=== PATIENT | female | born 1995 | race Caucasian/White ===

== ENCOUNTER 2021-10-17 11:08 | Inpatient (IN) | payer OTHER ==
[2021-10-17] MEDS ORDERED: ONDANSETRON *ODT* 4 MG TABLET SL PRN (11:58)
[2021-10-17] MEDS ORDERED: MAG HYDROX/AL HYDROX/SIMETH 30 ML UNIT-DOSE CUP PO PRN (11:58)
[2021-10-17] MEDS ORDERED: MENTHOL/PHENOL 1 EACH UD MM PRN (11:58)
[2021-10-17] MEDS ORDERED: MAGNESIUM CITRATE 300 ML BOTTLE PO PRN (11:58)
[2021-10-17] MEDS ORDERED: BISMUTH SUBSALICYLATE 262 MG/15 ML BTL PO PRN (11:58)
[2021-10-17] MEDS ORDERED: MAGNESIUM HYDROX 2400MG/30ML ORAL SUSPENSION 30 ML CUP PO PRN (11:58)
[2021-10-17] MEDS ORDERED: ACETAMINOPHEN 325 MG TABLET (FP) PO PRN ×2 (11:58)
[2021-10-17] MEDS ORDERED: NICOTINE 10 MG CARTRIDGE (INHALER) IH PRN (11:58)
[2021-10-17] MEDS: TOLNAFTATE 1% CREAM 15 GM TUBE TP SCH ×2 (14:56→22:38)
[2021-10-17] MEDS: hydrOXYzine PAMOATE 25 MG CAPSULE (FP) PO SCH ×3 (14:57→22:39)
[2021-10-17] MEDS: NICOTINE 14 MG/24 HOURS TOPICAL PATCH TD SCH (14:57)
[2021-10-17 16:16] LABS: HEMOGLOBIN 12.6 GM/dL (10.7-15.3); MCH 27.4 pg (25.7-33.7); MCHC 33.1 g/dl (32.0-36.0); MEAN CELL VOLUME 82.9 fl (80-96); MEAN PLT VOLUME 8.1 fl (7.5-11.1); PLATELET COUNT 178 10^3/uL (134-434); RBC 4.58 M/mm3 (3.60-5.2); RDW 13.9 % (11.6-15.6); WHITE BLOOD COUNT 4.7 K/mm3 (4.0-10.0)
[2021-10-17 16:21] LABS: CALCIUM 9.1 mg/dL (8.5-10.1)
[2021-10-17 16:22] LABS: ALBUMIN 3.7 g/dl (3.4-5.0); BLOOD UREA NITROGEN 10.5 mg/dL (7-18)
[2021-10-17 16:25] LABS: CREATININE 0.7 mg/dL (0.55-1.3)
[2021-10-17 16:27] LABS: BILIRUBIN,TOTAL 0.9 mg/dL (0.2-1); TOT PROT 7.4 g/dl (6.4-8.2)
[2021-10-17] MEDS: IBUPROFEN 400 MG TABLET (FP) PO PRN (22:38)
[2021-10-17] MEDS: THIAMINE HCL 100 MG TABLET (FP) PO SCH (22:39)
[2021-10-17] MEDS: METHOCARBAMOL 500 MG TABLET PO PRN (22:39)
[2021-10-17] MEDS: traZODone HCL 50 MG TABLET (FP) PO SCH (22:39)
[2021-10-17] MEDS: MELATONIN 5 MG TABLETS PO SCH (22:39)
[2021-10-18] MEDS: hydrOXYzine PAMOATE 25 MG CAPSULE (FP) PO SCH ×5 (07:34→23:02)
[2021-10-18] MEDS: PRENATAL VITAMINS W/ FOLIC ACID TABLET (FP) PO SCH (10:24)
[2021-10-18] MEDS: NICOTINE 14 MG/24 HOURS TOPICAL PATCH TD SCH (10:24)
[2021-10-18] MEDS: SERTRALINE HCL 50 MG TABLET (FP) PO SCH (10:25)
[2021-10-18] MEDS: TOLNAFTATE 1% CREAM 15 GM TUBE TP SCH ×2 (10:25→22:58)
[2021-10-18] MEDS ORDERED: cloNIDine HCL 0.1 MG TABLET PO PRN (10:29)
[2021-10-18] MEDS ORDERED: methaDONE HCL 10 MG TABLET (FOR DETOX USE ONLY) PO ONE (10:29)
[2021-10-18] MEDS ORDERED: diazePAM 5 MG TABLET PO PRN (10:30)
[2021-10-18] MEDS ORDERED: FLU VACC QS2021-22(6MOS UP)/PF 60 MCG/0.5 ML SYRINGE IM ONE (12:00)
[2021-10-18] MEDS: MELATONIN 5 MG TABLETS PO SCH (22:57)
[2021-10-18] MEDS: THIAMINE HCL 100 MG TABLET (FP) PO SCH (22:57)
[2021-10-18] MEDS: traZODone HCL 50 MG TABLET (FP) PO SCH (22:57)
[2021-10-18] MEDS: IBUPROFEN 400 MG TABLET (FP) PO PRN (23:00)
[2021-10-18] MEDS: METHOCARBAMOL 500 MG TABLET PO PRN (23:00)
[2021-10-19] MEDS: hydrOXYzine PAMOATE 25 MG CAPSULE (FP) PO SCH ×5 (08:19→22:06)
[2021-10-19] MEDS ORDERED: methaDONE HCL 10 MG TABLET (FOR DETOX USE ONLY) ONE ×2 (09:42→11:33)
[2021-10-19] MEDS: NICOTINE 14 MG/24 HOURS TOPICAL PATCH TD SCH (11:36)
[2021-10-19] MEDS: PRENATAL VITAMINS W/ FOLIC ACID TABLET (FP) PO SCH (11:38)
[2021-10-19] MEDS: TOLNAFTATE 1% CREAM 15 GM TUBE TP SCH ×2 (11:58→22:06)
[2021-10-19] MEDS: SERTRALINE HCL 50 MG TABLET (FP) PO SCH (11:58)
[2021-10-19] MEDS: METHOCARBAMOL 500 MG TABLET PO PRN (18:20)
[2021-10-19] MEDS: THIAMINE HCL 100 MG TABLET (FP) PO SCH (22:06)
[2021-10-19] MEDS: MELATONIN 5 MG TABLETS PO SCH (22:06)
[2021-10-19] MEDS: traZODone HCL 50 MG TABLET (FP) PO SCH (22:06)
[2021-10-20] MEDS: hydrOXYzine PAMOATE 25 MG CAPSULE (FP) PO SCH ×5 (06:50→22:16)
[2021-10-20] MEDS ORDERED: methaDONE HCL 10 MG TABLET (FOR DETOX USE ONLY) PO ONE (10:00)
[2021-10-20] MEDS: SERTRALINE HCL 50 MG TABLET (FP) PO SCH (10:41)
[2021-10-20] MEDS: PRENATAL VITAMINS W/ FOLIC ACID TABLET (FP) PO SCH (10:41)
[2021-10-20] MEDS: NICOTINE 14 MG/24 HOURS TOPICAL PATCH TD SCH (10:42)
[2021-10-20] MEDS: TOLNAFTATE 1% CREAM 15 GM TUBE TP SCH ×2 (10:46→23:03)
[2021-10-20] MEDS: traZODone HCL 50 MG TABLET (FP) PO SCH (22:16)
[2021-10-20] MEDS: THIAMINE HCL 100 MG TABLET (FP) PO SCH (22:16)
[2021-10-20] MEDS: MELATONIN 5 MG TABLETS PO SCH (22:16)
[2021-10-20] MEDS: IBUPROFEN 400 MG TABLET (FP) PO PRN (22:17)
[2021-10-20] MEDS: METHOCARBAMOL 500 MG TABLET PO PRN (22:17)
[2021-10-21] MEDS: hydrOXYzine PAMOATE 25 MG CAPSULE (FP) PO SCH ×5 (07:47→22:10)
[2021-10-21] MEDS ORDERED: methaDONE HCL 10 MG TABLET (FOR DETOX USE ONLY) ONE (09:51)
[2021-10-21] MEDS: METHOCARBAMOL 500 MG TABLET PO PRN ×2 (10:37→22:11)
[2021-10-21] MEDS: NICOTINE 14 MG/24 HOURS TOPICAL PATCH TD SCH (10:38)
[2021-10-21] MEDS: TOLNAFTATE 1% CREAM 15 GM TUBE TP SCH ×2 (10:38→22:17)
[2021-10-21] MEDS: SERTRALINE HCL 50 MG TABLET (FP) PO SCH (10:38)
[2021-10-21] MEDS: PRENATAL VITAMINS W/ FOLIC ACID TABLET (FP) PO SCH (10:38)
[2021-10-21] MEDS: THIAMINE HCL 100 MG TABLET (FP) PO SCH (22:10)
[2021-10-21] MEDS: traZODone HCL 50 MG TABLET (FP) PO SCH (22:10)
[2021-10-21] MEDS: MELATONIN 5 MG TABLETS PO SCH (22:10)
[2021-10-21] MEDS: IBUPROFEN 400 MG TABLET (FP) PO PRN (22:11)
[2021-10-22] MEDS: hydrOXYzine PAMOATE 25 MG CAPSULE (FP) PO SCH ×5 (07:09→23:50)
[2021-10-22] MEDS ORDERED: methaDONE HCL 10 MG TABLET (FOR DETOX USE ONLY) PO ONE (10:00)
[2021-10-22] MEDS: NICOTINE 14 MG/24 HOURS TOPICAL PATCH TD SCH (10:19)
[2021-10-22] MEDS: PRENATAL VITAMINS W/ FOLIC ACID TABLET (FP) PO SCH (10:20)
[2021-10-22] MEDS: SERTRALINE HCL 50 MG TABLET (FP) PO SCH (10:20)
[2021-10-22] MEDS: TOLNAFTATE 1% CREAM 15 GM TUBE TP SCH ×2 (10:22→22:26)
[2021-10-22] MEDS: METHOCARBAMOL 500 MG TABLET PO PRN ×2 (13:52→22:26)
[2021-10-22] MEDS: traZODone HCL 50 MG TABLET (FP) PO SCH (22:25)
[2021-10-22] MEDS: MELATONIN 5 MG TABLETS PO SCH (22:25)
[2021-10-22] MEDS: THIAMINE HCL 100 MG TABLET (FP) PO SCH (22:26)
[2021-10-22] MEDS: IBUPROFEN 400 MG TABLET (FP) PO PRN (22:28)
[2021-10-23] MEDS: METHOCARBAMOL 500 MG TABLET PO PRN (05:39)
[2021-10-23] MEDS: hydrOXYzine PAMOATE 25 MG CAPSULE (FP) PO SCH ×2 (05:39→11:18)
[2021-10-23 09:33] VITALS: BP 113/74; PULSE 55; TEMP 97.7
[2021-10-23] MEDS: TOLNAFTATE 1% CREAM 15 GM TUBE TP SCH (11:18)
[2021-10-23] MEDS: NICOTINE 14 MG/24 HOURS TOPICAL PATCH TD SCH (11:18)
[2021-10-23] MEDS: PRENATAL VITAMINS W/ FOLIC ACID TABLET (FP) PO SCH (11:18)
[2021-10-23] MEDS: SERTRALINE HCL 50 MG TABLET (FP) PO SCH (11:18)
== END 2021-10-23 12:51 | disposition home or self-care (01) | DRG 773 ==
LOC: YASAS 11:08 → Y3N 13:01
PROVIDERS: ADMIT Allergy & Immunology; ATTEND Allergy & Immunology
PROC: HZ2ZZZZ Detoxification Services for Substance Abuse Treatment (ICD-10-PCS; principal; 2021-10-17)
DX: F11.23 Opioid dependence with withdrawal (principal); F14.20 Cocaine dependence, uncomplicated; F17.210 Nicotine dependence, cigarettes, uncomplicated; F19.24 Other psychoactive substance dependence with psychoactive substance-induced mood disorder; F43.10 Post-traumatic stress disorder, unspecified; F41.1 Generalized anxiety disorder; G40.909 Epilepsy, unspecified, not intractable, without status epilepticus; G47.00 Insomnia, unspecified; Z91.013 Allergy to seafood; Z56.0 Unemployment, unspecified; Z59.02 Unsheltered homelessness
CPT/HCPCS: 36415; 80053; 81025; 82962; 85027; 86780; C9803; U0003; U0005

== ENCOUNTER 2022-02-05 15:33 | Inpatient (IN) | payer OTHER ==
[2022-02-05] MEDS ORDERED: hydrOXYzine PAMOATE 25 MG CAPSULE (FP) PO PRN (18:31)
[2022-02-05] MEDS ORDERED: BISMUTH SUBSALICYLATE 524 MG/30 ML PO PRN (18:31)
[2022-02-05] MEDS ORDERED: ONDANSETRON *ODT* 4 MG TABLET SL PRN (18:31)
[2022-02-05] MEDS ORDERED: METHOCARBAMOL 500 MG TABLET PO PRN (18:31)
[2022-02-05] MEDS ORDERED: DICYCLOMINE HCL 10 MG CAPSULE PO PRN (18:31)
[2022-02-05] MEDS ORDERED: MENTHOL/PHENOL 1 EACH UD MM PRN (18:31)
[2022-02-05] MEDS ORDERED: MAG HYDROX/AL HYDROX/SIMETH 30 ML UNIT-DOSE CUP PO PRN (18:31)
[2022-02-05] MEDS ORDERED: MAGNESIUM HYDROX 2400MG/30ML ORAL SUSPENSION 30 ML CUP PO PRN (18:31)
[2022-02-05] MEDS ORDERED: ACETAMINOPHEN 325 MG TABLET (FP) PO PRN ×2 (18:31)
[2022-02-05] MEDS ORDERED: MAGNESIUM CITRATE 300 ML BOTTLE PO PRN (18:31)
[2022-02-05] MEDS ORDERED: LOPERAMIDE HCL 2 MG CAPSULE PO PRN (18:31)
[2022-02-05] MEDS ORDERED: MELATONIN 5 MG TABLETS PO PRN (18:31)
[2022-02-05] MEDS ORDERED: cloNIDine HCL 0.1 MG TABLET PO PRN (18:35)
[2022-02-05 18:40] VITALS: BMI 26.8
[2022-02-05] MEDS: chlordiazePOXIDE HCL 25 MG CAPSULE PO PRN (19:47)
[2022-02-05] MEDS ORDERED: methaDONE HCL 10 MG TABLET (FOR DETOX USE ONLY) PO ONE (20:00)
[2022-02-05] MEDS: BACITRACIN 0.9 GM PACKET TP SCH (22:38)
[2022-02-05] MEDS: chlordiazePOXIDE HCL 25 MG CAPSULE PO SCH (22:39)
[2022-02-05] MEDS: THIAMINE HCL 100 MG TABLET (FP) PO SCH (22:39)
[2022-02-05] MEDS: SULFAMETHOXAZOLE/TRIMETHOPRIM 800MG/160MG D.S. TABLET PO SCH ×2 (22:39→22:46)
[2022-02-05] MEDS: LIDOCAINE PATCH REMOVAL MC SCH (22:39)
[2022-02-06] MEDS: chlordiazePOXIDE HCL 25 MG CAPSULE PO SCH ×4 (06:30→22:54)
[2022-02-06] MEDS ORDERED: methaDONE HCL 10 MG TABLET (FOR DETOX USE ONLY) ONE (09:08)
[2022-02-06] MEDS: BACITRACIN 0.9 GM PACKET TP SCH ×2 (11:47→22:55)
[2022-02-06] MEDS: SULFAMETHOXAZOLE/TRIMETHOPRIM 800MG/160MG D.S. TABLET PO SCH ×2 (11:47→22:55)
[2022-02-06] MEDS: PRENATAL VITAMINS W/ FOLIC ACID TABLET (FP) PO SCH (11:48)
[2022-02-06] MEDS: LIDOCAINE 5% TOPICAL PATCH TP SCH (11:48)
[2022-02-06] MEDS: IBUPROFEN 400 MG TABLET (FP) PO PRN (12:55)
[2022-02-06] MEDS: THIAMINE HCL 100 MG TABLET (FP) PO SCH (22:54)
[2022-02-06] MEDS: LIDOCAINE PATCH REMOVAL MC SCH (22:55)
[2022-02-07] MEDS: chlordiazePOXIDE HCL 25 MG CAPSULE PO PRN (03:55)
[2022-02-07] MEDS: chlordiazePOXIDE HCL 25 MG CAPSULE PO SCH ×2 (06:46→11:07)
[2022-02-07] MEDS: IBUPROFEN 400 MG TABLET (FP) PO PRN (07:11)
[2022-02-07 08:46] VITALS: BP 104/54; PULSE 84; TEMP 97.2
[2022-02-07] MEDS ORDERED: methaDONE HCL 10 MG TABLET (FOR DETOX USE ONLY) PO ONE (10:00)
[2022-02-07 10:13] LABS: SARS-CoV-2 NAA Not Detected (Not Detected)
[2022-02-07] MEDS: SULFAMETHOXAZOLE/TRIMETHOPRIM 800MG/160MG D.S. TABLET PO SCH (11:06)
[2022-02-07] MEDS: LIDOCAINE 5% TOPICAL PATCH TP SCH (11:11)
[2022-02-07] MEDS: PRENATAL VITAMINS W/ FOLIC ACID TABLET (FP) PO SCH (11:11)
[2022-02-07] MEDS: BACITRACIN 0.9 GM PACKET TP SCH (11:11)
[2022-02-07 12:13] LABS: HEMATOCRIT 34.5 % (32.4-45.2); HEMOGLOBIN 11.3 GM/dL (10.7-15.3); MCH 26.4 pg (25.7-33.7); MCHC 32.7 g/dl (32.0-36.0); MEAN CELL VOLUME 80.8 fl (80-96); MEAN PLT VOLUME 7.4 fl (7.5-11.1); PLATELET COUNT 436 10^3/uL (134-434); RBC 4.27 M/mm3 (3.60-5.2); RDW 16.4 % (11.6-15.6); WHITE BLOOD COUNT 5.4 K/mm3 (4.0-10.0)
[2022-02-07 12:27] LABS: ALBUMIN 3.4 g/dl (3.4-5.0); BLOOD UREA NITROGEN 10.5 mg/dL (7-18); CALCIUM 9.2 mg/dL (8.5-10.1)
[2022-02-07 12:30] LABS: CREATININE 0.8 mg/dL (0.55-1.3)
[2022-02-07 12:32] LABS: TOT PROT 7.4 g/dl (6.4-8.2)
[2022-02-08] MEDS ORDERED: chlordiazePOXIDE HCL 10 MG CAPSULE PO PRN
[2022-02-08] MEDS ORDERED: chlordiazePOXIDE HCL 10 MG CAPSULE PO SCH (05:00)
[2022-02-09 00:07] LABS: SARS-CoV-2 NAA Not Detected (Not Detected)
[2022-02-09] MEDS ORDERED: chlordiazePOXIDE HCL 10 MG CAPSULE PO SCH (05:00)
[2022-02-09] MEDS ORDERED: methaDONE HCL 10 MG TABLET (FOR DETOX USE ONLY) PO ONE (10:00)
[2022-02-10] MEDS ORDERED: chlordiazePOXIDE HCL 10 MG CAPSULE PO ONE (05:00)
== END 2022-02-07 12:43 | disposition left against medical advice (07) | DRG 770 ==
LOC: YASAS 15:33 → Y3N 18:58
PROVIDERS: ADMIT Allergy & Immunology; ATTEND Allergy & Immunology
PROC: HZ2ZZZZ Detoxification Services for Substance Abuse Treatment (ICD-10-PCS; principal; 2022-02-05)
DX: F11.23 Opioid dependence with withdrawal (principal); F13.230 Sedative, hypnotic or anxiolytic dependence with withdrawal, uncomplicated; F14.20 Cocaine dependence, uncomplicated; F15.10 Other stimulant abuse, uncomplicated; F17.210 Nicotine dependence, cigarettes, uncomplicated; F19.24 Other psychoactive substance dependence with psychoactive substance-induced mood disorder; F43.10 Post-traumatic stress disorder, unspecified; G47.00 Insomnia, unspecified; Z86.69 Personal history of other diseases of the nervous system and sense organs; Z56.0 Unemployment, unspecified; Z59.00 Homelessness unspecified
CPT/HCPCS: 36415; 80053; 81025; 85027; 86780; 87811; C9803-CS; J0735; U0003; U0005